=== PATIENT | male | born 1980 ===

== ENCOUNTER → 2022-09-04 09:12 | Outpatient (BNVA) | payer OTHER, SELFPAY | PROVIDERS: Visit Provider Physician Assistant | DX: M54.6 Pain in thoracic spine (principal) | CPT/HCPCS: 99212 ==

== ENCOUNTER 2023-01-05 13:48 | Outpatient (AMB) | payer OTHER, SELFPAY ==
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
== END 2023-01-05 14:37 | disposition home or self-care (01) ==
PROVIDERS: Visit Provider Neurological Surgery
DX: M54.6 Pain in thoracic spine (principal)
CPT/HCPCS: 99212

== ENCOUNTER → 2023-01-05 13:48 | Outpatient (BNVA) | payer OTHER, SELFPAY | PROVIDERS: Visit Provider Neurological Surgery | DX: M54.6 Pain in thoracic spine (principal) | CPT/HCPCS: 99212 ==